=== PATIENT | male | born 2000 | race Caucasian/White ===

== ENCOUNTER 2022-07-18 20:07 | Emergency (ER) | payer OTHER ==
[~2022-07-18] VITALS: Ht 182.9 cm; Wt 70.5 kg
[2022-07-18 20:08] VITALS: BP 123/69
[2022-07-18] MEDS ORDERED: IBUPROFEN 800 MG TAB PO ONE (22:55)
[2022-07-18] MEDS ORDERED: ONDA4TAB6 PO (22:59)
[2022-07-18] MEDS ORDERED: IBUP-1022 PO (22:59)
== END 2022-07-18 23:09 | disposition home or self-care (01) ==
LOC: M ED 20:07
DX: U07.1 COVID-19 (principal); Z20.822 Contact with and (suspected) exposure to COVID-19